=== PATIENT | male | born 2000 | race Caucasian/White ===

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

== ENCOUNTER → 2021-01-02 14:37 | Outpatient (BNVA) | payer MEDICAID, SELFPAY | PROVIDERS: Family Provider Family Medicine; PCP Family Medicine; Visit Provider Counselor Mental Health | DX: F40.10 Social phobia, unspecified (principal); F41.1 Generalized anxiety disorder | CPT/HCPCS: 90834 ==

== ENCOUNTER → 2021-01-16 14:39 | Outpatient (BNVA) | payer MEDICAID, SELFPAY | PROVIDERS: Family Provider Family Medicine; PCP Family Medicine; Visit Provider Counselor Mental Health | DX: F41.1 Generalized anxiety disorder (principal); F40.10 Social phobia, unspecified | CPT/HCPCS: 90834 ==

== ENCOUNTER → 2021-02-12 12:52 | Outpatient (BNVA) | payer MEDICAID, SELFPAY | PROVIDERS: Family Provider Family Medicine; PCP Family Medicine; Visit Provider Counselor Mental Health | DX: F41.1 Generalized anxiety disorder (principal); F40.10 Social phobia, unspecified | CPT/HCPCS: 90834 ==

== ENCOUNTER → 2021-02-14 14:43 | Outpatient (BNVA) | payer MEDICAID, SELFPAY | PROVIDERS: Family Provider Family Medicine; PCP Family Medicine; Visit Provider Counselor Mental Health | DX: F41.1 Generalized anxiety disorder (principal); F40.10 Social phobia, unspecified | CPT/HCPCS: 90834 ==

== ENCOUNTER → 2021-02-25 08:26 | Outpatient (BNVA) | payer MEDICAID, SELFPAY | PROVIDERS: Family Provider Family Medicine; PCP Family Medicine; Visit Provider Psychiatry & Neurology Psychiatry | DX: F41.1 Generalized anxiety disorder (principal); F40.10 Social phobia, unspecified; Z79.899 Other long term (current) drug therapy; Z03.89 Encounter for observation for other suspected diseases and conditions ruled out | CPT/HCPCS: 80053; 80061; 82306; 83036; 84439; 84443; 85025; 99214 ==

== ENCOUNTER → 2021-02-27 07:27 | Outpatient (BNVA) | payer MEDICAID, SELFPAY | PROVIDERS: Family Provider Family Medicine; PCP Family Medicine; Visit Provider Counselor Mental Health | DX: F41.1 Generalized anxiety disorder (principal); F40.10 Social phobia, unspecified | CPT/HCPCS: 90834 ==

== ENCOUNTER → 2021-03-07 08:16 | Outpatient (BNVA) | payer MEDICAID, SELFPAY | PROVIDERS: Family Provider Family Medicine; PCP Family Medicine; Visit Provider Counselor Mental Health | DX: F41.1 Generalized anxiety disorder (principal); F40.10 Social phobia, unspecified | CPT/HCPCS: 90834 ==

== ENCOUNTER → 2021-03-19 09:01 | Outpatient (BNVA) | payer MEDICAID, SELFPAY | PROVIDERS: Family Provider Family Medicine; PCP Family Medicine; Visit Provider Counselor Mental Health | DX: F41.1 Generalized anxiety disorder (principal); F40.10 Social phobia, unspecified | CPT/HCPCS: 90834 ==

== ENCOUNTER → 2021-04-04 15:13 | Outpatient (BNVA) | payer MEDICAID, SELFPAY | PROVIDERS: Family Provider Family Medicine; PCP Family Medicine; Visit Provider Psychiatry & Neurology Psychiatry | DX: F31.81 Bipolar II disorder (principal); F40.10 Social phobia, unspecified; F41.1 Generalized anxiety disorder; Z79.899 Other long term (current) drug therapy; Z03.89 Encounter for observation for other suspected diseases and conditions ruled out | CPT/HCPCS: 99214 ==

== ENCOUNTER → 2021-05-16 14:27 | Outpatient (BNVA) | payer MEDICAID, SELFPAY | PROVIDERS: Family Provider Family Medicine; PCP Family Medicine; Visit Provider Psychiatry & Neurology Psychiatry | DX: F41.1 Generalized anxiety disorder (principal); F40.10 Social phobia, unspecified; F31.81 Bipolar II disorder; Z03.89 Encounter for observation for other suspected diseases and conditions ruled out; Z79.899 Other long term (current) drug therapy | CPT/HCPCS: 99214 ==

== ENCOUNTER → 2021-07-12 10:55 | Outpatient (BNVA) | payer MEDICAID, SELFPAY | PROVIDERS: Family Provider Family Medicine; PCP Family Medicine; Visit Provider Psychiatry & Neurology Psychiatry | DX: F31.81 Bipolar II disorder (principal); F40.10 Social phobia, unspecified; F41.1 Generalized anxiety disorder; Z79.899 Other long term (current) drug therapy; Z03.89 Encounter for observation for other suspected diseases and conditions ruled out | CPT/HCPCS: 99214 ==

== ENCOUNTER → 2021-10-08 10:27 | Outpatient (BNVA) | payer MEDICAID, SELFPAY | PROVIDERS: Family Provider Family Medicine; PCP Family Medicine; Visit Provider Psychiatry & Neurology Psychiatry | DX: F41.1 Generalized anxiety disorder (principal); F40.10 Social phobia, unspecified; F31.81 Bipolar II disorder; Z79.899 Other long term (current) drug therapy; Z03.89 Encounter for observation for other suspected diseases and conditions ruled out | CPT/HCPCS: 99214 ==

== ENCOUNTER → 2021-12-12 12:38 | Outpatient (BNVA) | payer MEDICAID, SELFPAY | PROVIDERS: Family Provider Family Medicine; PCP Family Medicine; Visit Provider Psychiatry & Neurology Psychiatry | DX: F41.1 Generalized anxiety disorder (principal); F31.81 Bipolar II disorder; F40.10 Social phobia, unspecified; Z79.899 Other long term (current) drug therapy; Z03.89 Encounter for observation for other suspected diseases and conditions ruled out | CPT/HCPCS: 99214 ==

== ENCOUNTER → 2022-12-25 13:28 | Outpatient (BNVA) | payer MEDICARE, MEDICAID, OTHER, SELFPAY | PROVIDERS: Family Provider Family Medicine; PCP Family Medicine; Visit Provider Psychiatry & Neurology Psychiatry | DX: Z79.899 Other long term (current) drug therapy (principal) | CPT/HCPCS: 80053; 80061; 83036; 84443; 85025 ==

== ENCOUNTER 2023-06-13 13:42 | Emergency (ER) | payer MEDICARE, MEDICAID, SELFPAY ==
[2023-06-13 13:50] VITALS: BP 162/110; PULSE 77; RESP 22; TEMP 36.8; O2SAT 98; BMI 28.1
--- NOTE | 2023-06-13 14:28 | ED.C_ITS ---
HPI - Psych General: Chief Complaint: Psychiatric Symptoms Stated Complaint: Si, pt states panic attacks Time Seen by Provider: 06/13/23 13:51 History of Present Illness: 23-year-old male presents emergency department with his father. The patient states that he is recently had a behavioral health counseling session approximately 3 days ago and had a medication change. He states he feels like he has suicidal thoughts but has no plan and no means for plan. He states that he is depressed because he wants his father to be home more and spend more time with him although his father is a supportive employment case manager of a local company and requires a lot of his time. He states he has never been admitted inpatient and has no intent of self-harm only suicidal thoughts. He states he did smoke marijuana last night which calmed him down and states that he does intermittently. He states he also will intermittently drink vodka although he knows he should not with his medications. He denies nausea, vomiting fevers chills or night sweats. He denies auditory or visual hallucinations. Associated symptoms: Reports depression and suicidal ideation; Deny auditory hallucinations or homicidal ideation Review of Systems General: Reports: 10 or more systems reviewed and unremarkable except in HPI and below Psych: Reports: depression and suicidal ideation; Denies: auditory hallucinations, tactile hallucinations or homicidal ideation [facility] ED PFSH: Medical History (Updated 06/13/23 @ 16:35 by Daryl White MD) Alcohol use disorder Encounter for observation for other suspected diseases and conditions ruled out RODNEY (generalized anxiety disorder) Mood swing Psychiatric care Social anxiety disorder Social History Smoking and tobacco/nicotine status: never used tobacco/nicotine Second hand smoke exposure: No Current gender identity: Male Physical Exam Narrative: EXAM NARRATIVE: Constitutional: the patient appears well nourished and with normal development. Vital signs reviewed as documented. HENMT: Normocephalic, atraumatic. External ears with normal appearance without drainage. Nose without drainage, normal appearance. Mucus membranes moist. Neck is supple, No jugular venous distension, trachea is midline, no appreciable carotid bruits. No lymphadenopathy. No meningeal signs. Flexion, extension and lateral rotation is without pain. Eyes: Pupils are equal, round, reactive to light and accommodation. No scleral icterus. Extra-ocular movement are intact. Thorax is symmetrical and with equal rise and fall with respirations. Resp: Lungs are clear to auscultation. No wheezes, rales, crackles or ronchi at pesent. Cardio: Regular rate and rhythm. Positive S1, S2. No appreciable murmurs, rubs or gallops. GI: Abdominal exam reveals normal bowel sounds to all quadrants. No organomegaly. No obvious palpable masses noted. No hepatomegaly appreciated. Soft, nontender to palpation. Extremity: Extremities are non-edematous and both femoral and pedal pulses are 2+ and equal bilaterally. Moves all extremities well, sensation in all extremities. Neuro: Alert and oriented x4, person, place, time and situation. Cranial nerves II through XII are grossly intact, there is no focal neurological deficits that I can appreciate at present. Motor strength in the upper and lower extremities are equal and bilateral 5/5. Psych: Cooperative, calm, normal thought process, appropriate judgment. Skin: No lesions, rashes. No gross abnormalities noted. Back: Symmetrical, no obvious deformity, No CVA tenderness Course Vital Signs: Vital signs: Vital Signs Temperature 98.3 F 06/13/23 13:50 Pulse Rate 77 06/13/23 13:50 Respiratory Rate 22 H 06/13/23 13:50 Blood Pressure 162/110 06/13/23 13:50 Pulse Oximetry 98 06/13/23 13:50 Oxygen Delivery Me thod Room Air 06/13/23 13:50 MDM - Psych Medical Decision Making Physical exam completed and documented, I will obtain behavioral health medical clearance laboratory to include a CBC, CMP urine drug screen urinalysis and alcohol as well as salicylate and Tylenol level. I had an extensive discussion with the patient and given his lack of plan we did agree on a safety plan and his father agreed to monitor him and have him call the crisis line if any additional thoughts recur. He also agreed to call his psychiatrist to be seen before his previously scheduled appointment. Given the father's close relationship with the patient I will at the patient and the father's request di scharge him home with recommended follow-up with his behavioral health counselor, access to the crisis center if needed and follow-up with his psychiatrist. Differential Diagnosis Likely suicidal ideation and depression Medical Records I reviewed the patient's medical records. Lab Data I reviewed the patient's lab results. 06/13/23 14:55 06/13/23 14:55 Laboratory Results WBC 4.74 10^3/uL (3.29-11.43) 06/13/23 14:55 RBC 4.66 10^6/uL (3.85-5.65) 06/13/23 14:55 Hgb 15.70 g/dL (11.27-16.99) 06/13/23 14:55 Hct 43.6 % (37-53) 06/13/23 14:55 MCV 93.6 fl (82-101) 06/13/23 14:55 MCH 33.7 pg (27-33) H 06/13/23 14:55 MCHC 36.0 g/dL (30-55) 06/13/23 14:55 RDW 11.9 % (12.1-15.1) L 06/13/23 14:55 Plt Count 150 10^3/cmm (157-399) L 06/13/23 14:55 MPV 9.4 fL (7.4-10.4) 06/13/23 14:55 Neut % (Auto) 67.6 % 06/13/23 14:55 Lymph % (Auto) 21.3 % 06/13/23 14:55 Tift % (Auto) 10.3 % 06/13/23 14:55 Eos % (Auto) 0.0 % 06/13/23 14:55 Baso % (Auto) 0.4 % 06/13/23 14:55 Neut # (Auto) 3.20 10^3/uL (1.8-7.7) 06/13/23 14:55 Lymph # (Auto) 1.0 10^3/uL (0.8-4.8) 06/13/23 14:55 Tift # (Auto) 0.5 10^3/uL (0.2-0.9) 06/13/23 14:55 Eos # (Auto) 0.0 10^3/uL (0.0-0.8) 06/13/23 14:55 Baso # (Auto) 0.0 10^3/uL (0.0-0.1) 06/13/23 14:55 Nucleated RBC % (auto) 0 % 06/13/23 14:55 Nucleated RBCs # 0.0 /100WBC 06/13/23 14:55 Sodium 136 mmol/L (136-145) 06/13/23 14:55 Potassium 3.5 mmol/L (3.5-5.1) 06/13/23 14:55 Chloride 99 mmol/L (98-107) 06/13/23 14:55 Carbon Dioxide 24 mmol/L (22-29) 06/13/23 14:55 Anion Gap 16.5 (5-19) 06/13/23 14:55 BUN 5 mg/dL (6-20) L 06/13/23 14:55 Creatinine 0.9 mg/dL (0.7-1.2) 06/13/23 14:55 GFR Calculation 105.5 mL/min (90-130) 06/13/23 14:55 Glucose 101 mg/dL (65-115) 06/13/23 14:55 Calculated Osmolality 279 mOsm/kg (285-295) L 06/13/23 14:55 Calcium 9.9 mg/dL (8.5-10.5) 06/13/23 14:55 Total Bilirubin 1.2 mg/dL (0.15-1.2) 06/13/23 14:55 AST 32 U/L (0-40) 06/13/23 14:55 ALT 35 U/L (0-41) 06/13/23 14:55 Alkaline Phosphatase 91 U/L (40-130) 06/13/23 14:55 Total Protein 6.5 g/dL (6.6-8.7) L 06/13/23 14:55 Albumin 4.5 g/dL (3.5-5.2) 06/13/23 14:55 Globulin 2.0 g/dL (1.3-4.6) 06/13/23 14:55 Urine Color Crista (Yellow) 06/13/23 14:50 Urine Appearance Clear (CLEAR) 06/13/23 14:50 Urine pH 8 (5-7) H 06/13/23 14:50 Ur Specific [place] 1.010 (1.005-1.030) 06/13/23 14:50 Urine Protein Neg (Negative) 06/13/23 14:50 Urine Glucose (UA) Norm (Normal) 06/13/23 14:50 Urine Ketones 1+ (Negative) H 06/13/23 14:50 Urine Blood Neg (Negative) 06/13/23 14:50 Urine Nitrate Negative (Negative) 06/13/23 14:50 Urine Bilirubin Neg (Negative) 06/13/23 14:50 Urine Urobilinogen Norm mg/dL (Negative) 06/13/23 14:50 Ur Leukocyte Esterase Negative (Negative) 06/13/23 14:50 Salicylates < 0.3 mg/dL (3-10) L 06/13/23 14:55 Urine Opiates Screen Negative ng/mL (Negative) 06/13/23 14:50 Acetaminophen < 5.0 ug/mL (10-30) L 06/13/23 14:55 Ur Barbiturates Screen Negative ng/mL (Negative) 06/13/23 14:50 Ur Phencyclidine Scrn Negative ng/mL (Negative) 06/13/23 14:50 Ur Amphetamines Screen Negative ng/mL (Negative) 06/13/23 14:50 U Benzodiazepines Scrn Negative ng/mL (Negative) 06/13/23 14:50 Urine Cocaine Screen Negative ng/mL (Negative) 06/13/23 14:50 U Marijuana (THC) Screen Positive ng/mL (Negative) H 06/13/23 14:50 Ethyl Alcohol < 10 mg/dL (0-10) 06/13/23 14:55 No radiology studies performed this visit Discharge Plan Discharge Patient Disposition: Home Clinical Impression: Depression, Suicidal ideation Condition: Stable Prescriptions: No Action ibuprofen 200 mg Tablet 800 mg PO Q6H PRN (Reason: Pain) Lamictal 25 mg tablet See Rx Instructions .ROUTE .COMPLEX Rx Instructions: 25mg po at bedtime for 14 days and then increase to 50mg at bedtime. trazodone 100 mg tablet 100 mg PO BEDTIME lurasidone 120 mg tablet 120 mg PO BEDTIME Rx Instructions: must administer with food (at least 350 calories) Discharge Orders: Discharge ED (Routine); Ordered 06/13/23 Ordered By: Daryl White Referrals: Yossi Naavrro MD [Primary Care Provider] - Discharge Diet: Advance as tolerated Discharge Activity: Resume usual activity Patient Instructions: Opioid Safety, Pain Management Activity Restrictions/Additional Instructions: Activity Restrictions/Additional Instructions: Thank you for choosing [facility] for your healthcare needs today. Please realize that you were seen in the Emergency Department and that we are providing you with an emergency medical screening exam and this may not be complete and all inclusive of all the testing and or medical work-up that you may need to determine your ailment or severity of your illness. It is very important that you follow-up as instructed with your Primary care provider or Specialist for additional evaluation and to discuss your medical treatment plan. You may return to the Emergency Department should you have concerns or if your condition changes or worsens in any way. Coding Level of Care Code ED Shuttle Route Vehicle Operator for Shefali Tucker
--- NOTE | 2023-06-13 14:28 | ECG_ITS ---
[facility] Test Date: 2023-06-13 Pat Name: Manuel Key Department: Room: Gender: Male Curriculum Assistant: : 2000 Requested By: Daryl White Order Number: [id number] Linda MD: Iram Garcia M.D. Measurements Intervals [place] Rate: 66 P: 41 UT: 112 QRS: 60 QRSD: 104 T: 28 QT: 428 QTc: 448 Interpretive Statements SINUS RHYTHM WITH SINUS ARRHYTHMIA WITH SHORT UT INTERVAL No previous ECG available for comparison Electronically Signed On 06-13-2023 15:41:04 CEMETERY LAB[employer]ER by Iram Garcia M.D. [id number]
--- NOTE | 2023-06-13 14:50 | PC.PHAR ---
pt states he takes care of his own medications-pt states prozac 20mg daily filled 05/29/23 30d/s,clonazepam 0.5mg tid prn filled 05/11/23 30d/s and zoloft 100mg bid filled 05/11/23 30d/s was all dced-pt states only taking the 3 medications entered and prn ibuprofen
[2023-06-13 15:07] LABS: Basophils % 0.4 %; Hematocrit 43.6 % (37-53); Lymphocytes % 21.3 %; Mean Corpuscular Hemoglobin 33.7 pg (27-33); Mean Corpuscular Volume 93.6 fl (82-101); Mean Platelet Volume 9.4 fL (7.4-10.4); Monocytes # 0.5 10^3/uL (0.2-0.9); Monocytes % 10.3 %; Neutrophils % 67.6 %; Nucleated Red Blood Cells % 0 %; Platelet Count 150 10^3/cmm (157-399); Red Blood Count 4.66 10^6/uL (3.85-5.65); Red Cell Distribution Width 11.9 % (12.1-15.1); White Blood Count 4.74 10^3/uL (3.29-11.43)
[2023-06-13 15:17] LABS: Add Urine Microscopic? NO; Charge for UA Resulting for Rev
[2023-06-13 15:21] LABS: Bilirubin Urine Neg (Negative); Blood Urine Neg (Negative); Glucose Urine UA Norm (Normal); Ketones Urine 1+ (Negative); Leukocyte Esterase Urine Negative (Negative); Nitrate Urine Negative (Negative); Protein Urine Neg (Negative); Urine Appearance Clear (CLEAR); Urine Color Amber (Yellow); Urobilinogen Urine Norm (Negative); pH Urine 8 (5-7)
[2023-06-13 15:30] LABS: Amphetamines Screen Urine Negative (Negative); Barbiturates Screen Urine Negative (Negative); Benzodiazepines Screen Urine Negative (Negative); Cocaine Screen Urine Negative (Negative); Opiate Screen Urine Negative (Negative); PCP Screen Urine Negative (Negative); THC Screen Urine Positive (Negative)
[2023-06-13 15:32] LABS: Alanine Aminotransferase 35 U/L (0-41); Albumin Level 4.5 g/dL (3.5-5.2); Alkaline Phosphatase 91 U/L (40-130); Anion Gap 16.5 (5-19); Aspartate Amino Transferase 32 U/L (0-40); Blood Urea Nitrogen 5 mg/dL (6-20); Calcium 9.9 mg/dL (8.5-10.5); Carbon Dioxide 24 mmol/L (22-29); Chloride 99 mmol/L (98-107); Glomerular Filtration Rate 105.5 mL/min (90-130); Glucose 101 mg/dL (65-115); Osmolality Calculated 279 mOsm/kg (285-295); Potassium 3.5 mmol/L (3.5-5.1); Sodium 136 mmol/L (136-145); Total Bilirubin 1.2 mg/dL (0.15-1.2); Total Protein 6.5 g/dL (6.6-8.7)
[2023-06-13 15:33] LABS: Acetaminophen < 5.0 ug/mL (10-30); Alcohol Level < 10 mg/dL (0-10); Salicylate < 0.3 mg/dL (3-10)
[2023-06-13 17:18] VITALS: BP 162/110; PULSE 77; RESP 22; TEMP 36.8; O2SAT 98
== END 2023-06-13 17:22 | disposition home or self-care (01) ==
PROVIDERS: Emergency Provider Internal Medicine; PCP Family Medicine
DX: R45.851 Suicidal ideations (principal); F32.A Depression, unspecified
CPT/HCPCS: 80053; 80306; 80307; 81003; 85025; 93005; 99284

== ENCOUNTER → 2023-08-26 13:03 | Outpatient (BNVA) | payer MEDICARE, OTHER, SELFPAY | PROVIDERS: PCP Family Medicine; Visit Provider Nurse Practitioner Psychiatric/Mental Health | DX: F31.81 Bipolar II disorder (principal); Z79.899 Other long term (current) drug therapy; F84.0 Autistic disorder; F12.20 Cannabis dependence, uncomplicated; F17.210 Nicotine dependence, cigarettes, uncomplicated | CPT/HCPCS: 80053 ==